=== PATIENT | male | born 1960 | race Two or more races ===

== ENCOUNTER 2018-12-03 22:18 | Inpatient (IN) | payer BC, MEDICAID, OTHER ==
[~2018-12-03] VITALS: Ht 165.1 cm; Wt 68.0 kg
[~2018-12-03 22:18] MED LIST: 0.9 % SODIUM CHLORIDE 10 ML VIAL ONE; HYDR-4383 PO; etomidate 2mg/ml inj. ONE; rocuronium 10mg/ml inj IV ONE
[2018-12-03] MEDS ORDERED: diphenhydrAMINE 50 mg/ml inj IV ONE (22:50)
[2018-12-03] MEDS ORDERED: epiNEPHrine 1 mg/ml inj IM ONE (22:50)
[2018-12-03] MEDS ORDERED: famotidine/PF 10 mg/ml inj IV ONE (22:50)
[2018-12-03] MEDS ORDERED: methylPREDNISolone sod succ 125mg/2ml vial IV ONE (22:50)
[2018-12-03] MEDS ORDERED: propofol 1000mg/100ml bottle 100 ML IV ONE (22:51)
--- NOTE | 2018-12-03 22:54 | NUR ---
125MG OF SOLUMEDROL GIVEN @ 2254 50MG OF BENADRYL GIVEN @ 2254 0.3MG OF EPI GIVEN @ 2255 50MG OF PROPOFOL GIVEN @ 2257 (1ST DOSE) 50MG OF PROPOFOL GIVEN @ 2258 (2ND DOSE) 50MG OF PROPOFOL GIVEN @ 2259 (3RD DOSE) 50MG OF PROPOFOL GIVEN @ 2300 (4TH DOSE) POSITIVE COLOR CHANGE @ 2305
--- NOTE | 2018-12-03 22:58 | NUR ---
PT TAKEN STRAIGHT BACK FROM TRIAGE TO BED 2, MD BAZAN AND MD DAWSON AT BEDSIDE. MD BAZAN EVALUATED PATIENT AND ORDERS EMERGENT INTUBATION DUE TO DECREASING AIRWAY PATENTCY.
--- NOTE | 2018-12-03 23:00 | NUR ---
RT AT BEDSIDE FOR EMERGENT INTUBATION, PATIENT VERBALLY GAVE CONSENT TO MD.
[2018-12-03] MEDS ORDERED: iohexol 300mg/ml 100ml inj. ONE (23:13)
--- NOTE | 2018-12-03 23:14 | NUR ---
RESPIRATORY ADVANCED TUBE TO 28 AT THE TEETH AFTER XRAY CONFIRMATION PER DR BAZAN.
[2018-12-03] MEDS ORDERED: midazolam 2 mg/2 ml injection ONE (23:31)
[2018-12-03 23:32] LABS: ALANINE AMINOTRANSFERASE 51 U/L (12-78); ALBUMIN 4.1 G/DL (3.4-5.0); ALBUMIN/GLOBULIN RATIO 0.8 (1.1-1.5); ALKALINE PHOSPHATASE 71 IU/L (46-116); ANION GAP 15 (8-16); ASPARTATE AMINO TRANSFERASE 68 U/L (10-37); BILIRUBIN,TOTAL 0.6 MG/DL (0.1-1.0); BLOOD UREA NITROGEN 8 MG/DL (7-18); BUN/CREATININE RATIO 7.7 (5.4-32.0); CALCIUM 9.5 MG/DL (8.5-10.1); CHLORIDE 97 MMOL/L (99-107); CREATININE 1.04 MG/DL (0.60-1.10); GLUCOSE 76 MG/DL (70-104); SODIUM 135 MMOL/L (135-145); TOTAL CARBON DIOXIDE 23.1 MMOL/L (24-32); TOTAL PROTEIN 9.2 G/DL (6.4-8.2); eGFR 73 ML/MIN
[2018-12-03 23:33] LABS: PARTIAL THROMBOPLASTIN TIME 29 SECONDS (22-32); PROTHROMBIN TIME 10.4 SECONDS (9.0-12.0)
[2018-12-03 23:35] LABS: BASOPHILS % (AUTO) 0.5 % (0-1); EOSINOPHILS # (AUTO) 0.1 X10'3 (0-0.9); EOSINOPHILS % (AUTO) 1.7 % (0-6); HEMOGLOBIN 14.8 g/dl (14.0-17.9); LYMPHOCYTES # (AUTO) 1.8 X10'3 (1.1-4.8); LYMPHOCYTES % (AUTO) 20.6 % (21-51); MEAN CORPUSCULAR HEMOGLOBIN 35.7 PG (27.0-31.0); MEAN PLATELET VOLUME 8.6 FL (7.4-10.4); MONOCYTES # (AUTO) 0.8 X10'3 (0-0.9); MONOCYTES % (AUTO) 9.7 % (2-12); NEUTROPHILS % (AUTO) 67.5 % (42-75); PLATELET COUNT 180 X10'3 (140-440); RED BLOOD COUNT 4.16 X10'6 (4.70-6.10); WHITE BLOOD COUNT 8.7 X10'3 (4.5-11.0)
[2018-12-03] MEDS ORDERED: fentaNYL/PF 50MCG/1 ML 2ML syringe IV ONE (23:35)
[2018-12-03] MEDS ORDERED: MIDAZolam 5mg/ml 2ml vial IV ONE (23:35)
[2018-12-04] VITALS (14 sets, daily range): BP systolic 127–175; BP diastolic 77–107
[2018-12-04 00:10] LABS: ABG HCO3 21.9 mmol/L (22.0-26.0); ABG OXYGEN SATURATION 97.5 % (95-98); ABG PCO2 (T) 34.6 mmHg (35.0-48.0); ABG PH (T) 7.419 (7.350-7.450); ALLEN'S TEST Positive; FCOHb 2.5 % (0.5-1.5); FMetHb 0.1 % (0.3-1.12); MINUTE VOLUME 8 L/min; PATIENT TEMPERATURE 36.8; PEEP 5 cm H2O; RESPIRATORY RATE 14 b/min; RESPIRATORY RATE (OBSERVED) 14 b/min; TOTAL HEMOGLOBIN 13.9 G/dl (14.0-18.0)
[2018-12-04] MEDS: propofol 1000mg/100ml bottle 100 ML IV PRN ×5 (00:38→18:42)
--- NOTE | 2018-12-04 02:02 | NUR ---
PATIENT EYES OPEN, MOVING, BOLUS AND INCREASE OF PROPOFOL
[2018-12-04] MEDS: normal saline 1000ml 1,000 ML IV SCH ×2 (02:44→13:31)
[2018-12-04] MEDS ORDERED: potassium Cl 40MEQ/NS 500ml 500 ML IV PRN ×2 (02:45)
[2018-12-04] MEDS ORDERED: ondansetron/PF 4mg/2ml inj IV PRN (02:45)
[2018-12-04] MEDS ORDERED: diphenhydrAMINE 50 mg/ml inj IV PRN (02:45)
[2018-12-04] MEDS ORDERED: acetaminophen 325mg tablet PO PRN ×2 (02:45)
[2018-12-04] MEDS ORDERED: magnesium hydroxide 30ml (MOM) UD suspension PO PRN (02:45)
[2018-12-04] MEDS ORDERED: ipratropium/albuterol 3ml nebule NEB PRN (02:45)
[2018-12-04] MEDS ORDERED: HYDR200T84 PO (03:07)
[2018-12-04] MEDS ORDERED: CLOP75TA15 PO (03:07)
[2018-12-04] MEDS ORDERED: METF850T PO (03:07)
[2018-12-04] MEDS ORDERED: GLIM1TAB PO (03:07)
[2018-12-04] MEDS ORDERED: LISI-645 PO (03:07)
[2018-12-04] MEDS ORDERED: METO1TAB25 PO (03:07)
[2018-12-04 07:58] LABS: INR 1.1 INR; PARTIAL THROMBOPLASTIN TIME 26 SECONDS (22-32); PROTHROMBIN TIME 10.7 SECONDS (9.0-12.0)
[2018-12-04 07:59] LABS: ALANINE AMINOTRANSFERASE 45 U/L (12-78); ALBUMIN 3.8 G/DL (3.4-5.0); ALBUMIN/GLOBULIN RATIO 0.8 (1.1-1.5); ALKALINE PHOSPHATASE 65 IU/L (46-116); ANION GAP 12 (8-16); ASPARTATE AMINO TRANSFERASE 50 U/L (10-37); BILIRUBIN,TOTAL 0.7 MG/DL (0.1-1.0); BLOOD UREA NITROGEN 10 MG/DL (7-18); BUN/CREATININE RATIO 9.2 (5.4-32.0); CALCIUM 9.4 MG/DL (8.5-10.1); CHLORIDE 99 MMOL/L (99-107); CREATININE 1.09 MG/DL (0.60-1.10); GLUCOSE 185 MG/DL (70-104); MAGNESIUM 1.7 MG/DL (1.5-2.4); PHOSPHORUS 1.7 MG/DL (2.3-4.5); POTASSIUM 4.7 MMOL/L (3.5-5.1); SODIUM 134 MMOL/L (135-145); TOTAL CARBON DIOXIDE 23.1 MMOL/L (24-32); TOTAL PROTEIN 8.8 G/DL (6.4-8.2); eGFR 69 ML/MIN
[2018-12-04] MEDS ORDERED: famotidine 10mg/ml inj IV SCH (08:00)
[2018-12-04] MEDS: docusate sodium 100mg/10ml UD cup PO SCH ×2 (08:00→20:16)
[2018-12-04] MEDS: K, MAG and/or Phos replacement - Verify level? MC SCH (08:00)
[2018-12-04] MEDS: methylPREDNISolone sod succ 125mg/2ml vial IV SCH ×3 (08:51→20:16)
[2018-12-04] MEDS: heparin, porcine 5000 units/ml vial SQ SCH ×2 (08:51→20:17)
[2018-12-04 09:55] LABS: BASOPHILS % (AUTO) 0.1 % (0-1); EOSINOPHILS % (AUTO) 0 % (0-6); HEMATOCRIT 43.3 % (42.0-52.0); HEMOGLOBIN 13.9 g/dl (14.0-17.9); LYMPHOCYTES # (AUTO) 0.5 X10'3 (1.1-4.8); LYMPHOCYTES % (AUTO) 9.7 % (21-51); MEAN CORPUSCULAR HEMOGLOBIN 35.2 PG (27.0-31.0); MEAN CORPUSCULAR HGB CONC 32.1 % (33.0-36.5); MEAN CORPUSCULAR VOLUME 109.7 FL (78-98); MEAN PLATELET VOLUME 9.1 FL (7.4-10.4); MONOCYTES % (AUTO) 0.6 % (2-12); NEUTROPHILS # (AUTO) 4.5 X10'3 (1.8-7.7); NEUTROPHILS % (AUTO) 89.6 % (42-75); PLATELET COUNT 162 X10'3 (140-440); RED BLOOD COUNT 3.95 X10'6 (4.70-6.10); RED CELL DISTRIBUTION WIDTH 12.9 % (11.5-14.5)
--- NOTE | 2018-12-04 10:00 | NUR ---
Received report from Matthew in ER. Patient arrived to unit. 2 nurse assessment completed with Claudine Tony Various scattered areas of depigmentation noted, 1 small area of skin abrasion to right worship noted, patient easily awakened, wrote to me he wanted water, explained why he was here and what the POC is. Patient nodded understanding. BP at 1100 175/107 Dr Connolly notified of BP , no new orders continue to monitor.
--- NOTE | 2018-12-04 11:58 | NUR ---
Patient turned and full skin assessment with direct observation completed by myself and Claudine Tony
--- NOTE | 2018-12-04 15:09 | NUR ---
Patient is intubated to protect airway d/t tongue swelling . Per MD note patient is awake, alert, though nonverbal and will be extubated when tongue swelling subsides. No plans for tube feeding at this time. Recommend: 1. If prolonged intubation and to receive tube feedings recommend vital AF at 70 ml/hr. 2. When extubated advance diet as medically indicated to heart healthy, carb controlled Addendum: 12/04/18 at [address] Amended: Links added.
[2018-12-04] MEDS ORDERED: dextrose 50%-water 50ml dispensing syringe IV PRN ×2 (16:55)
[2018-12-04] MEDS ORDERED: glucagon, human recombinant 1mg kit SUBCUT PRN (16:55)
[2018-12-04] MEDS ORDERED: MESSAGE TO PHARMACY PO ONE (16:55)
[2018-12-04] MEDS ORDERED: dextrose ORAL solution 15 GM/59 ML bottle PO PRN ×2 (16:55)
[2018-12-04 18:06] LABS: HEMOGLOBIN A1C 5.3 % (4.5-6.2)
--- NOTE | 2018-12-04 18:22 | NUR ---
Problems reprioritized. Patient report given, questions answered & plan of care reviewed with Claudine LÓPEZ.
--- NOTE | 2018-12-04 18:30 | NUR ---
RECEIVED IN BED , INTUBATED , ON MAX DOSE OF PROFOPOL , AWAKE , NOD TO QUESTION APPROPRIATELY , ASKING FOR A DRINK OF WATER , BP UP , NOD FOR PAIN QUESTION , ASSESSMENT STARTED
[2018-12-04] MEDS: famotidine/PF 10 mg/ml inj IV SCH (20:16)
[2018-12-04] MEDS: FENTANYL-0.9 % NACL/PF 100 ML IV PRN (20:18)
[2018-12-04] MEDS: insulin glargine (Lantus) pen - multi-dose SQ SCH (21:00)
[2018-12-05] VITALS (23 sets, daily range): BP systolic 114–166; BP diastolic 48–97
[2018-12-05] MEDS: diphenhydrAMINE 50 mg/ml inj IV SCH ×3 (00:04→15:23)
[2018-12-05] MEDS: methylPREDNISolone sod succ 125mg/2ml vial IV SCH ×4 (02:50→20:20)
[2018-12-05 03:36] LABS: ABG BASE EXCESS -3.3 mmol/L (-2.0-3.0); ABG HCO3 19.8 mmol/L (22.0-26.0); ABG OXYGEN SATURATION 98.3 % (95-98); ABG PCO2 (T) 28.6 mmHg (35.0-48.0); ABG PH (T) 7.452 (7.350-7.450); ABG PO2 (T) 117.1 mmHg (83-108); ALLEN'S TEST Positive; FCOHb 0.3 % (0.5-1.5); FMetHb 0.1 % (0.3-1.12); FO2Hb 97.9 % (94-100); PATIENT TEMPERATURE 35.7; PEEP 5 cm H2O; RESPIRATORY RATE 14 b/min; RESPIRATORY RATE (OBSERVED) 14 b/min; TOTAL HEMOGLOBIN 13.8 G/dl (14.0-18.0)
[2018-12-05 05:18] LABS: PARTIAL THROMBOPLASTIN TIME 26 SECONDS (22-32); PROTHROMBIN TIME 10.5 SECONDS (9.0-12.0)
[2018-12-05 05:23] LABS: ALANINE AMINOTRANSFERASE 35 U/L (12-78); ALBUMIN 3.3 G/DL (3.4-5.0); ALBUMIN/GLOBULIN RATIO 0.8 (1.1-1.5); ALKALINE PHOSPHATASE 52 IU/L (46-116); ANION GAP 12 (8-16); ASPARTATE AMINO TRANSFERASE 24 U/L (10-37); BILIRUBIN,TOTAL 0.5 MG/DL (0.1-1.0); BLOOD UREA NITROGEN 12 MG/DL (7-18); BUN/CREATININE RATIO 10.8 (5.4-32.0); CALCIUM 8.4 MG/DL (8.5-10.1); CHLORIDE 103 MMOL/L (99-107); CREATININE 1.11 MG/DL (0.60-1.10); GLUCOSE 167 MG/DL (70-104); MAGNESIUM 1.8 MG/DL (1.5-2.4); PHOSPHORUS 4.8 MG/DL (2.3-4.5); SODIUM 138 MMOL/L (135-145); TOTAL CARBON DIOXIDE 23.2 MMOL/L (24-32); TOTAL PROTEIN 7.6 G/DL (6.4-8.2); eGFR 68 ML/MIN
[2018-12-05 05:31] LABS: BASOPHILS % (AUTO) 0 % (0-1); EOSINOPHILS % (AUTO) 0 % (0-6); HEMATOCRIT 39.5 % (42.0-52.0); HEMOGLOBIN 13.1 g/dl (14.0-17.9); LYMPHOCYTES # (AUTO) 0.6 X10'3 (1.1-4.8); LYMPHOCYTES % (AUTO) 7.1 % (21-51); MEAN CORPUSCULAR HGB CONC 33.3 % (33.0-36.5); MEAN CORPUSCULAR VOLUME 108.3 FL (78-98); MEAN PLATELET VOLUME 9.4 FL (7.4-10.4); MONOCYTES # (AUTO) 0.2 X10'3 (0-0.9); MONOCYTES % (AUTO) 2.2 % (2-12); NEUTROPHILS # (AUTO) 7.6 X10'3 (1.8-7.7); NEUTROPHILS % (AUTO) 90.7 % (42-75); PLATELET COUNT 170 X10'3 (140-440); RED BLOOD COUNT 3.65 X10'6 (4.70-6.10); RED CELL DISTRIBUTION WIDTH 12.9 % (11.5-14.5); WHITE BLOOD COUNT 8.4 X10'3 (4.5-11.0)
[2018-12-05] MEDS: K, MAG and/or Phos replacement - Verify level? MC SCH (08:00)
[2018-12-05] MEDS: docusate sodium 100mg/10ml UD cup PO SCH ×2 (08:22→20:20)
[2018-12-05] MEDS: famotidine/PF 10 mg/ml inj IV SCH ×2 (08:22→20:19)
[2018-12-05] MEDS: heparin, porcine 5000 units/ml vial SQ SCH ×2 (08:25→20:20)
[2018-12-05] MEDS: propofol 1000mg/100ml bottle 100 ML IV PRN ×4 (08:34→23:21)
[2018-12-05] MEDS: normal saline 1000ml 1,000 ML IV SCH ×3 (08:44→19:31)
[2018-12-05] MEDS: FENTANYL-0.9 % NACL/PF 100 ML IV PRN (08:50)
[2018-12-05] MEDS: mineral oil/petrolatum ophthal oint EACHEYE SCH ×3 (08:50→20:19)
--- NOTE | 2018-12-05 11:10 | NUR ---
TF consult 12/05: Pt remains intubated. TF recommendations below. Will continue to follow. Previous note: Patient is intubated to protect airway d/t tongue swelling . Per MD note patient is awake, alert, though nonverbal and will be extubated when tongue swelling subsides. No plans for tube feeding at this time. Recommend: 1. Continuous TF of vital AF with goal rate of 70 ml/hr to provide: total volume of 1680 mL/d, 2016 kcal, 113 g protein, and 1284 mL water. 2. 200 mL water flush q 4 hrs 3. Prealbumin q / 4. Daily wt 5. When extubated advance diet as medically indicated to heart healthy, carb controlled Addendum: 12/05/18 at [address] Amended: Links added.
[2018-12-05] MEDS: insulin regular, human vial - multi-dose SQ SCH ×2 (14:05→20:26)
--- NOTE | 2018-12-05 18:28 | NUR ---
Problems reprioritized. Patient report given, questions answered & plan of care reviewed with Justin LÓPEZ.
[2018-12-05] MEDS: insulin glargine (Lantus) pen - multi-dose SQ SCH (20:25)
[2018-12-06] VITALS (30 sets, daily range): BP systolic 109–267; BP diastolic 58–205
[2018-12-06] MEDS: FENTANYL-0.9 % NACL/PF 100 ML IV PRN (00:38)
[2018-12-06] MEDS: diphenhydrAMINE 50 mg/ml inj IV SCH ×4 (00:38→23:35)
[2018-12-06] MEDS: methylPREDNISolone sod succ 125mg/2ml vial IV SCH ×4 (02:45→19:46)
[2018-12-06] MEDS: mineral oil/petrolatum ophthal oint EACHEYE SCH ×4 (02:46→19:00)
[2018-12-06] MEDS: insulin regular, human vial - multi-dose SQ SCH ×2 (02:51→08:43)
[2018-12-06 04:16] LABS: ABG BASE EXCESS -4.3 mmol/L (-2.0-3.0); ABG OXYGEN SATURATION 96.5 % (95-98); ABG PCO2 (T) 28.9 mmHg (35.0-48.0); ABG PH (T) 7.432 (7.350-7.450); ABG PO2 (T) 84.6 mmHg (83-108); ALLEN'S TEST Positive; FCOHb 0.3 % (0.5-1.5); FMetHb 0.1 % (0.3-1.12); FO2Hb 96.1 % (94-100); MINUTE VOLUME 7 L/min; PATIENT TEMPERATURE 36.3; PEEP 5 cm H2O; RESPIRATORY RATE 14 b/min; RESPIRATORY RATE (OBSERVED) 14 b/min; TOTAL HEMOGLOBIN 12.9 G/dl (14.0-18.0)
[2018-12-06] MEDS: normal saline 1000ml 1,000 ML IV SCH ×2 (04:59→14:03)
[2018-12-06] MEDS: propofol 1000mg/100ml bottle 100 ML IV PRN (05:00)
--- NOTE | 2018-12-06 06:32 | NUR ---
Problems reprioritized. Patient report given, questions answered & plan of care reviewed with Juliana LÓPEZ.
[2018-12-06 06:53] LABS: ALANINE AMINOTRANSFERASE 28 U/L (12-78); ALBUMIN 2.9 G/DL (3.4-5.0); ALBUMIN/GLOBULIN RATIO 0.7 (1.1-1.5); ALKALINE PHOSPHATASE 46 IU/L (46-116); ANION GAP 15 (8-16); ASPARTATE AMINO TRANSFERASE 21 U/L (10-37); BILIRUBIN,TOTAL 0.4 MG/DL (0.1-1.0); BLOOD UREA NITROGEN 16 MG/DL (7-18); BUN/CREATININE RATIO 16.7 (5.4-32.0); CALCIUM 8.2 MG/DL (8.5-10.1); CHLORIDE 107 MMOL/L (99-107); CREATININE 0.96 MG/DL (0.60-1.10); GLUCOSE 167 MG/DL (70-104); PHOSPHORUS 3.5 MG/DL (2.3-4.5); POTASSIUM 3.7 MMOL/L (3.5-5.1); SODIUM 141 MMOL/L (135-145); TOTAL CARBON DIOXIDE 19.2 MMOL/L (24-32); TOTAL PROTEIN 6.8 G/DL (6.4-8.2); eGFR 80 ML/MIN
[2018-12-06 07:00] LABS: BASOPHILS % (AUTO) 0.1 % (0-1); EOSINOPHILS % (AUTO) 0 % (0-6); HEMATOCRIT 35.8 % (42.0-52.0); LYMPHOCYTES # (AUTO) 0.6 X10'3 (1.1-4.8); LYMPHOCYTES % (AUTO) 6.8 % (21-51); MEAN CORPUSCULAR HEMOGLOBIN 36.8 PG (27.0-31.0); MEAN CORPUSCULAR HGB CONC 33.6 % (33.0-36.5); MEAN CORPUSCULAR VOLUME 109.7 FL (78-98); MEAN PLATELET VOLUME 9.8 FL (7.4-10.4); MONOCYTES # (AUTO) 0.3 X10'3 (0-0.9); NEUTROPHILS # (AUTO) 7.8 X10'3 (1.8-7.7); NEUTROPHILS % (AUTO) 89.1 % (42-75); PLATELET COUNT 141 X10'3 (140-440); RED BLOOD COUNT 3.26 X10'6 (4.70-6.10); WHITE BLOOD COUNT 8.7 X10'3 (4.5-11.0)
[2018-12-06 07:10] LABS: INR 1.1 INR; PARTIAL THROMBOPLASTIN TIME 26 SECONDS (22-32); PROTHROMBIN TIME 10.7 SECONDS (9.0-12.0)
[2018-12-06] MEDS: K, MAG and/or Phos replacement - Verify level? MC SCH (08:00)
[2018-12-06] MEDS: heparin, porcine 5000 units/ml vial SQ SCH ×2 (08:31→19:45)
[2018-12-06] MEDS: famotidine/PF 10 mg/ml inj IV SCH ×2 (08:31→19:45)
[2018-12-06] MEDS: docusate sodium 100mg/10ml UD cup PO SCH ×2 (08:32→19:45)
[2018-12-06] MEDS: labetalol 20mg/4ml (5mg/ml) syringe IV PRN ×2 (09:44→16:55)
--- NOTE | 2018-12-06 09:49 | NUR ---
Pt. awake and communicating with communication tools. Awaiting RT to obtain weaning parameters on pt.
--- NOTE | 2018-12-06 09:50 | NUR ---
Medicated with PRN labetolol for increased BP of 179/105.
--- NOTE | 2018-12-06 10:32 | NUR ---
Pt. just passed weaning parameters. Dr. Srinivasan notified in person as she came and saw pt. as RT was finishing. Awaiting orders to extubate.
--- NOTE | 2018-12-06 11:35 | NUR ---
Awaiting RT to extubate pt. Family at bedside.
--- NOTE | 2018-12-06 11:44 | NUR ---
Pt. extubated at 1140. Sp02 98% on 2L nc. No stridor noted. Call light in reach.
[2018-12-06] MEDS ORDERED: labetalol 20mg/4ml (5mg/ml) syringe IV ONE (12:00)
--- NOTE | 2018-12-06 12:40 | NUR ---
Dr. Srinivasan at bedside speaking with pt. BP remains high (208/125). Coreg ordered.
[2018-12-06] MEDS: carvedilol 6.25mg tablet PO SCH ×2 (12:46→19:02)
--- NOTE | 2018-12-06 18:25 | NUR ---
Report given to Keya palomino RN. Addendum: 12/06/18 at 1826 by Juliana Bassett RN Amended: Links added.
--- NOTE | 2018-12-06 18:30 | NUR ---
Patient in room ICU 2045. I have received report from Juliana LÓPEZ and had the opportunity to ask questions and assume patient care.
[2018-12-06] MEDS ORDERED: hydrALAZINE 20mg/ml inj. IV PRN (19:25)
[2018-12-06] MEDS ORDERED: diphenhydrAMINE 50 mg/ml inj IV PRN (19:25)
[2018-12-06] MEDS ORDERED: amLODIPine 5mg tablet PO ONE (19:25)
--- NOTE | 2018-12-06 20:00 | NUR ---
Notification: Called November Zamorano RE: I gave ordered Coreg early. PRN given at 1655. Elevated BP not responding to ordered TX. New orders received will administer and monitor closely.
[2018-12-06] MEDS: insulin Lispro (HumaLOG) vial - multi-dose SQ SCH (20:03)
[2018-12-06] MEDS: insulin glargine (Lantus) pen - multi-dose SQ SCH (21:15)
--- NOTE | 2018-12-06 21:35 | NUR ---
MD Notification: November Zamorano at bedside RE: Pt C/O difficult breathing SBP and HR increasing and pt O2 sat decreasing. Lungs sound crackles. Nonrebreather mask applied. New orders received. Nitro sublingual, nitro gtt, Lasix IV, increased solumedrol IV, labs, and chest x-ray. Will continue to monitor.
--- NOTE | 2018-12-06 21:35 | NUR ---
SBP goal greater than 100 and less than 140. Will continue to monitor.
[2018-12-06] MEDS ORDERED: nitroGLYCERIN-Tridil 50MG/D5W 250 ML IV ONE (21:44)
[2018-12-06] MEDS ORDERED: nitroGLYCERIN 0.4mg SUBLingual tab SL ONE (21:44)
[2018-12-06] MEDS ORDERED: furosemide 40mg/4ml inj IV ONE (21:45)
[2018-12-06] MEDS ORDERED: nitroGLYCERIN 0.4mg SUBLingual tab SL PRN (21:45)
[2018-12-06] MEDS ORDERED: morphine 4 MG/ML inj SYRINge ONE (21:54)
[2018-12-06] MEDS ORDERED: morphine 4 MG/ML inj SYRINge IV ONE (21:55)
[2018-12-06] MEDS ORDERED: methylPREDNISolone sod succ 125mg/2ml vial IV ONE (22:00)
[2018-12-06] MEDS ORDERED: CefTRIAXone 2gm/D5W 50ml 50 ML IV ONE (22:00)
--- NOTE | 2018-12-06 22:00 | NUR ---
Notification: Called November Zamorano RE: critical troponin 1.35. New orders received start a new IV and heparin gtt. Awaiting results of throat Xray before starting gtt. Will continue to monitor.
[2018-12-06 22:11] LABS: BASOPHILS # (AUTO) 0.1 X10'3 (0-0.2); BASOPHILS % (AUTO) 0.5 % (0-1); EOSINOPHILS % (AUTO) 0.1 % (0-6); HEMATOCRIT 46.8 % (42.0-52.0); LYMPHOCYTES # (AUTO) 1.1 X10'3 (1.1-4.8); LYMPHOCYTES % (AUTO) 5.8 % (21-51); MEAN CORPUSCULAR HEMOGLOBIN 35.3 PG (27.0-31.0); MEAN CORPUSCULAR HGB CONC 32.1 % (33.0-36.5); MEAN CORPUSCULAR VOLUME 109.9 FL (78-98); MEAN PLATELET VOLUME 9.2 FL (7.4-10.4); MONOCYTES # (AUTO) 0.7 X10'3 (0-0.9); MONOCYTES % (AUTO) 3.6 % (2-12); NEUTROPHILS # (AUTO) 17.1 X10'3 (1.8-7.7); PLATELET COUNT 196 X10'3 (140-440); RED BLOOD COUNT 4.25 X10'6 (4.70-6.10); RED CELL DISTRIBUTION WIDTH 13.2 % (11.5-14.5)
[2018-12-06 22:28] LABS: ALANINE AMINOTRANSFERASE 35 U/L (12-78); ALBUMIN 3.1 G/DL (3.4-5.0); ALBUMIN/GLOBULIN RATIO 0.6 (1.1-1.5); ALKALINE PHOSPHATASE 70 IU/L (46-116); ANION GAP 14 (8-16); ASPARTATE AMINO TRANSFERASE 48 U/L (10-37); BILIRUBIN,TOTAL 0.8 MG/DL (0.1-1.0); BLOOD UREA NITROGEN 21 MG/DL (7-18); CALCIUM 8.4 MG/DL (8.5-10.1); CHLORIDE 109 MMOL/L (99-107); GLUCOSE 180 MG/DL (70-104); POTASSIUM 4.3 MMOL/L (3.5-5.1); SODIUM 143 MMOL/L (135-145); TOTAL CARBON DIOXIDE 20.1 MMOL/L (24-32); eGFR 76 ML/MIN
[2018-12-06 22:36] LABS: TROPONIN I 1.35 NG/ML (0.0-0.05)
[2018-12-06] MEDS ORDERED: heparin 10,000 units/1 ML INJ IV PRN (22:40)
[2018-12-06] MEDS ORDERED: aspirin 81mg tab.chew PO ONE (22:40)
[2018-12-06] MEDS ORDERED: heparin 10,000 units/1 ML INJ IV ONE (22:40)
[2018-12-06] MEDS: nitroGLYCERIN-Tridil 50MG/D5W 250 ML IV PRN (22:59)
[2018-12-06] MEDS: heparin 25,000 UNIT/250ml bag 250 ML IV SCH (23:44)
[2018-12-07] VITALS (31 sets, daily range): BP systolic 119–165; BP diastolic 78–108
[2018-12-07] MEDS: normal saline 1000ml 1,000 ML IV SCH (00:44)
[2018-12-07] MEDS: mineral oil/petrolatum ophthal oint EACHEYE SCH (02:00)
[2018-12-07] MEDS: methylPREDNISolone sod succ 125mg/2ml vial IV SCH ×4 (02:38→20:32)
--- NOTE | 2018-12-07 02:47 | NUR ---
notified Pt had a 6 beat run of VTach. Will assess this labs and continue to monitor.
[2018-12-07 03:58] LABS: BASOPHILS # (AUTO) 0.1 X10'3 (0-0.2); BASOPHILS % (AUTO) 0.4 % (0-1); EOSINOPHILS % (AUTO) 0 % (0-6); HEMATOCRIT 43.6 % (42.0-52.0); LYMPHOCYTES # (AUTO) 0.8 X10'3 (1.1-4.8); LYMPHOCYTES % (AUTO) 6.1 % (21-51); MEAN CORPUSCULAR HEMOGLOBIN 35.1 PG (27.0-31.0); MEAN CORPUSCULAR HGB CONC 32.1 % (33.0-36.5); MEAN CORPUSCULAR VOLUME 109.4 FL (78-98); MEAN PLATELET VOLUME 9.5 FL (7.4-10.4); MONOCYTES # (AUTO) 0.5 X10'3 (0-0.9); MONOCYTES % (AUTO) 4.1 % (2-12); NEUTROPHILS # (AUTO) 11.7 X10'3 (1.8-7.7); NEUTROPHILS % (AUTO) 89.4 % (42-75); PLATELET COUNT 168 X10'3 (140-440); RED BLOOD COUNT 3.99 X10'6 (4.70-6.10); WHITE BLOOD COUNT 13.1 X10'3 (4.5-11.0)
[2018-12-07 04:33] LABS: TROPONIN I 4.07 NG/ML (0.0-0.05)
[2018-12-07 04:47] LABS: ALANINE AMINOTRANSFERASE 32 U/L (12-78); ALBUMIN 3.1 G/DL (3.4-5.0); ALBUMIN/GLOBULIN RATIO 0.7 (1.1-1.5); ALKALINE PHOSPHATASE 66 IU/L (46-116); ANION GAP 15 (8-16); ASPARTATE AMINO TRANSFERASE 42 U/L (10-37); BILIRUBIN,TOTAL 0.5 MG/DL (0.1-1.0); BLOOD UREA NITROGEN 23 MG/DL (7-18); BUN/CREATININE RATIO 20.5 (5.4-32.0); CALCIUM 8.5 MG/DL (8.5-10.1); CHLORIDE 106 MMOL/L (99-107); CREATININE 1.12 MG/DL (0.60-1.10); GLUCOSE 137 MG/DL (70-104); MAGNESIUM 2.1 MG/DL (1.5-2.4); PHOSPHORUS 3.7 MG/DL (2.3-4.5); PREALBUMIN 23.5 MG/DL (19-36); SODIUM 143 MMOL/L (135-145); TOTAL CARBON DIOXIDE 21.7 MMOL/L (24-32); TOTAL PROTEIN 7.8 G/DL (6.4-8.2); eGFR 67 ML/MIN
--- NOTE | 2018-12-07 06:19 | NUR ---
Problems reprioritized. Patient report given, questions answered & plan of care reviewed with Juliana LÓPEZ.
--- NOTE | 2018-12-07 06:29 | NUR ---
Patient in room ICU 2045. I have received report from Keya LÓPEZ and had the opportunity to ask questions and assume patient care. Addendum: 12/07/18 at 0629 by Juliana Bassett RN Amended: Links added.
[2018-12-07 07:03] LABS: INR 1.1 INR; PROTHROMBIN TIME 11.1 SECONDS (9.0-12.0)
--- NOTE | 2018-12-07 07:26 | NUR ---
Karol Zamorano here. Stated she talked with Sumeet Elias (cardiology for Dr. Vasques) and she will see pt. later for elevated troponin. Nitro gtt increased to 100mcg for systolic BP >150.
[2018-12-07] MEDS: CefTRIAXone 2gm/D5W 50ml 50 ML IV SCH (07:57)
[2018-12-07] MEDS: famotidine/PF 10 mg/ml inj IV SCH ×2 (07:59→20:29)
[2018-12-07] MEDS: diphenhydrAMINE 50 mg/ml inj IV SCH ×2 (07:59→16:25)
[2018-12-07] MEDS ORDERED: non-formulary drug (Metoprolol/Hydrochlorothiazide 50/25 MG* (Lopressor Hct 50/25 MG*) 1 T PO SCH (08:00)
[2018-12-07] MEDS ORDERED: metoprolol tartrate 50mg tablet PO SCH (08:00)
[2018-12-07] MEDS: K, MAG and/or Phos replacement - Verify level? MC SCH (08:00)
[2018-12-07] MEDS ORDERED: furosemide 40mg tablet PO SCH (08:00)
[2018-12-07] MEDS ORDERED: HYDROchlorothiazide 25mg tablet PO SCH (08:00)
--- NOTE | 2018-12-07 08:19 | NUR ---
ECHO being done now. Ai Elias here. Will come back when ECHO done.
[2018-12-07] MEDS ORDERED: aspirin 325mg tablet PO SCH (08:30)
[2018-12-07] MEDS: insulin Lispro (HumaLOG) vial - multi-dose SQ SCH ×3 (08:42→18:52)
[2018-12-07] MEDS: clopidogrel 75mg tablet PO SCH (08:43)
[2018-12-07] MEDS: docusate sodium 100mg/10ml UD cup PO SCH ×2 (08:44→20:33)
[2018-12-07] MEDS: carvedilol 6.25mg tablet PO SCH (08:44)
[2018-12-07] MEDS: heparin 25,000 UNIT/250ml bag 250 ML IV SCH ×2 (09:07→11:33)
[2018-12-07] MEDS: aspirin 81mg tablet.DR PO SCH (09:40)
[2018-12-07] MEDS: nitroGLYCERIN-Tridil 50MG/D5W 250 ML IV PRN ×3 (09:48→22:46)
[2018-12-07 10:05] LABS: CHOL/HDL RATIO 4.4 (0.00-4.99); CHOLESTEROL 268 MG/DL (0-200); HDL CHOLESTEROL 61 MG/DL (35-60); LDL CHOLESTEROL 194 MG/DL (50-100); TRIGLYCERIDES 82 MG/DL (20-135)
--- NOTE | 2018-12-07 10:53 | NUR ---
Pt. taken off bipap and placed on 2L nc per pt's insistence. SP02 99% on nc.
--- NOTE | 2018-12-07 11:26 | NUR ---
Case Management talking with pt. now. Dr. Connolly came to pt's room. Noted pt. in chair off bipap.
[2018-12-07] MEDS: atorvastatin 20mg tablet PO SCH (13:22)
[2018-12-07] MEDS: furosemide 40mg tablet PO SCH ×2 (13:22→20:33)
--- NOTE | 2018-12-07 14:50 | NUR ---
Pt. sitting in chair, watching TV. SP02 99% on 2L.
--- NOTE | 2018-12-07 18:17 | NUR ---
Problems reprioritized. Patient report given, questions answered & plan of care reviewed with Talon LÓPEZ. Addendum: 12/07/18 at 1817 by Juliana Bassett RN Amended: Links added.
--- NOTE | 2018-12-07 18:20 | NUR ---
Patient in room ICU 2045. I have received report from RENE Andrews and had the opportunity to ask questions and assume patient care.
[2018-12-07] MEDS: carVEDilol 12.5mg tablet PO SCH (20:33)
[2018-12-07] MEDS: lactobacillus rhamnosus 10,000 MMU CELLS/CAPSULE PO SCH (20:33)
[2018-12-07] MEDS: insulin glargine (Lantus) pen - multi-dose SQ SCH (20:58)
--- NOTE | 2018-12-07 23:41 | NUR ---
Problems reprioritized. Patient report given, questions answered & plan of care reviewed with Devika/RENE Edmond.
--- NOTE | 2018-12-07 23:41 | NUR ---
Patient in room ICU 2045. I have received report from RENE Hanley and had the opportunity to ask questions and assume patient care with Shannon Richardson RN. Patient is awake and alert in bed. Very pleasant, in no distress at this time. Lung sounds clear and equal bilaterally. Patient with Heparin, and Nitroglycerin infusing. Normal saline running at 20ml/hr through PIV's to right and left forearm. Patient uses urinal and has great urine output. Patient expresses that he wants to get some rest. Made patient aware of the medications that he will have due in the next few hours.
[2018-12-08] VITALS (10 sets, daily range): BP systolic 121–144; BP diastolic 73–86
[2018-12-08] MEDS: diphenhydrAMINE 50 mg/ml inj IV SCH ×2 (00:42→07:40)
[2018-12-08] MEDS: methylPREDNISolone sod succ 125mg/2ml vial IV SCH ×2 (02:35→07:40)
--- NOTE | 2018-12-08 04:00 | NUR ---
Patient with intermittent cough, no productive. patient reassessed, lung sounds are clear and equal bilaterally. Patient denies any distress at this time, will continue to monitor.
[2018-12-08] MEDS: nitroGLYCERIN-Tridil 50MG/D5W 250 ML IV PRN (04:18)
[2018-12-08 05:14] LABS: BASOPHILS % (AUTO) 0 % (0-1); EOSINOPHILS % (AUTO) 0 % (0-6); HEMOGLOBIN 12.7 g/dl (14.0-17.9); LYMPHOCYTES # (AUTO) 0.9 X10'3 (1.1-4.8); LYMPHOCYTES % (AUTO) 11.1 % (21-51); MEAN CORPUSCULAR HEMOGLOBIN 36.3 PG (27.0-31.0); MEAN CORPUSCULAR HGB CONC 33.5 % (33.0-36.5); MEAN CORPUSCULAR VOLUME 108.2 FL (78-98); MEAN PLATELET VOLUME 9.3 FL (7.4-10.4); MONOCYTES # (AUTO) 0.3 X10'3 (0-0.9); MONOCYTES % (AUTO) 3.1 % (2-12); NEUTROPHILS % (AUTO) 85.8 % (42-75); PLATELET COUNT 151 X10'3 (140-440); RED BLOOD COUNT 3.51 X10'6 (4.70-6.10); RED CELL DISTRIBUTION WIDTH 12.8 % (11.5-14.5); WHITE BLOOD COUNT 8.2 X10'3 (4.5-11.0)
[2018-12-08 05:27] LABS: INR 1.1 INR; PROTHROMBIN TIME 11.2 SECONDS (9.0-12.0)
[2018-12-08 05:46] LABS: ALANINE AMINOTRANSFERASE 34 U/L (12-78); ALBUMIN/GLOBULIN RATIO 0.7 (1.1-1.5); ALKALINE PHOSPHATASE 51 IU/L (46-116); ANION GAP 15 (8-16); ASPARTATE AMINO TRANSFERASE 32 U/L (10-37); BILIRUBIN,TOTAL 0.6 MG/DL (0.1-1.0); BLOOD UREA NITROGEN 32 MG/DL (7-18); BUN/CREATININE RATIO 26.2 (5.4-32.0); CHLORIDE 99 MMOL/L (99-107); CREATININE 1.22 MG/DL (0.60-1.10); GLUCOSE 170 MG/DL (70-104); MAGNESIUM 1.8 MG/DL (1.5-2.4); PHOSPHORUS 4.4 MG/DL (2.3-4.5); SODIUM 138 MMOL/L (135-145); TOTAL CARBON DIOXIDE 24.5 MMOL/L (24-32); TOTAL PROTEIN 7.3 G/DL (6.4-8.2); eGFR 61 ML/MIN
--- NOTE | 2018-12-08 06:19 | NUR ---
report given to rec rn plan of care reviewed
[2018-12-08] MEDS: docusate sodium 100mg/10ml UD cup PO SCH (07:39)
[2018-12-08] MEDS: atorvastatin 20mg tablet PO SCH (07:39)
[2018-12-08] MEDS: furosemide 40mg tablet PO SCH (07:39)
[2018-12-08] MEDS: clopidogrel 75mg tablet PO SCH (07:39)
[2018-12-08] MEDS: lactobacillus rhamnosus 10,000 MMU CELLS/CAPSULE PO SCH (07:40)
[2018-12-08] MEDS: aspirin 81mg tablet.DR PO SCH (07:40)
[2018-12-08] MEDS: CefTRIAXone 2gm/D5W 50ml 50 ML IV SCH (07:40)
[2018-12-08] MEDS: famotidine/PF 10 mg/ml inj IV SCH (07:40)
[2018-12-08] MEDS: carVEDilol 12.5mg tablet PO SCH (07:40)
[2018-12-08] MEDS: K, MAG and/or Phos replacement - Verify level? MC SCH (07:47)
[2018-12-08] MEDS: insulin Lispro (HumaLOG) vial - multi-dose SQ SCH (08:34)
--- NOTE | 2018-12-08 08:43 | NUR ---
Sumeet Elias here for cardiology. Stated pt. can dc Heparin and Nitro gtt if ok with Dr. Connolly.
--- NOTE | 2018-12-08 09:36 | NUR ---
Dr. Connolly placing transfer orders in now for pt. to go to PCU with Tele. Charge nurse notified. Nitro and Heparin gtts dc'd.
--- NOTE | 2018-12-08 09:55 | NUR ---
SS met w/[facility] staff and was informed that pt was not cooperative in applying for [employer]. SS will meet w/pt to inform him about the option of hiring a private paid caregiver as w/o Med[employer] pt will not be able to access [facility] services.
--- NOTE | 2018-12-08 11:11 | NUR ---
Tele #[phone] placed on pt. since new monitors are being placed in ICU and there will be a lapse in monitoring pt. Pt. awaiting a room on PCU.
[2018-12-08] MEDS ORDERED: FAMO-128 PO (11:22)
[2018-12-08] MEDS ORDERED: CARV-50 PO (11:22)
[2018-12-08] MEDS ORDERED: ATOR20TA66 PO (11:22)
[2018-12-08] MEDS ORDERED: PRED10TA23 PO (11:22)
[2018-12-08] MEDS ORDERED: ASPI-1071 PO (11:22)
--- NOTE | 2018-12-08 11:23 | NUR ---
Pt. was unaware the Dr. Connolly was the MD when he came in to speak with pt. Dr. Connolly had plans to send pt. upstairs. Pt. wishing to go home. RN had pt. ambulate out to where Dr. Connolly was and tell him that he wanted to go home instead of being transferred upstairs. Awaiting orders.
--- NOTE | 2018-12-08 12:19 | NUR ---
Discharge instructions given to pt. Home meds obtained from pharmacy. Pt. to F/U with Dr. Vasques this week. Pt. dc'd in stable condition.
--- NOTE | 2018-12-08 13:46 | NUR ---
pt d/c'd home and have declined all offers of linkages to support services and [employer]. SS referral closed.
[2018-12-08] MEDS ORDERED: methylPREDNISolone sod succ 125mg/2ml vial IV SCH (14:00)
[2018-12-09] MEDS ORDERED: atorvastatin 20mg tablet PO SCH (08:00)
== END 2018-12-08 12:28 | disposition home or self-care (01) | DRG 915 ==
LOC: ER 22:19 → ED HOLD 12-04 02:44 → ICU 2S 12-04 10:05
PROVIDERS: ADMIT Internal Medicine Critical Care Medicine; ATTEND Internal Medicine Critical Care Medicine
PROC: 5A1945Z Respiratory Ventilation, 24-96 Consecutive Hours (ICD-10-PCS; principal; 2018-12-03)
PROC: 0BH17EZ Insertion of Endotracheal Airway into Trachea, Via Natural or Artificial Opening (ICD-10-PCS; 2018-12-03)
PROC: BW2F1ZZ Computerized Tomography (CT Scan) of Neck using Low Osmolar Contrast (ICD-10-PCS; 2018-12-03)
PROC: 5A09357 Assistance with Respiratory Ventilation, Less than 24 Consecutive Hours, Continuous Positive Airway Pressure (ICD-10-PCS; 2018-12-06)
DX: T78.3XXA Angioneurotic edema, initial encounter (principal); J96.01 Acute respiratory failure with hypoxia; E11.9 Type 2 diabetes mellitus without complications; E78.5 Hyperlipidemia, unspecified; F17.210 Nicotine dependence, cigarettes, uncomplicated; I11.0 Hypertensive heart disease with heart failure; I50.9 Heart failure, unspecified; I25.10 Atherosclerotic heart disease of native coronary artery without angina pectoris; T46.4X5A Adverse effect of angiotensin-converting-enzyme inhibitors, initial encounter; Z79.82 Long term (current) use of aspirin; Z79.84 Long term (current) use of oral hypoglycemic drugs; Z82.49 Family history of ischemic heart disease and other diseases of the circulatory system; Z83.3 Family history of diabetes mellitus; Z95.5 Presence of coronary angioplasty implant and graft; Z79.899 Other long term (current) drug therapy; Z71.6 Tobacco abuse counseling
CPT/HCPCS: 31500; 36415; 36600; 70360; 70491; 71045; 80053; 80061; 82803; 82948; 83036; 83735; 83880; 84100; 84134; 84484; 85018; 85025; 85610; 85730; 86885; 86900; 86901; 87070; 87077; 87185; 93005; 93306; 94002; 94003; 94660; 94760; 96372; 96374; 96375; 97162; 99291; G0378; J0171; J0360; J0696; J1200; J1644; J1815; J1940; J2250; J2270; J2704; J2930; J3010; J3480; J3490; Q9967

== ENCOUNTER 2021-09-18 20:17 | Inpatient (IN) | payer BC, MEDICAID, SELFPAY ==
[~2021-09-18] VITALS: Ht 172.7 cm; Wt 72.7 kg
[~2021-09-18 20:17] MED LIST changes: -0.9 % SODIUM CHLORIDE 10 ML VIAL ONE; +ASPI-1071 PO; +ATOR20TA66 PO; +CARV-50 PO; +CLOP75TA15 PO; +FAMO-128 PO; +GLIM1TAB PO; -HYDR-4383 PO; +HYDR200T84 PO; +METF850T PO; -etomidate 2mg/ml inj. ONE; -rocuronium 10mg/ml inj IV ONE
[2021-09-18 20:56] LABS: BASOPHILS % (AUTO) 0.6 % (0-1); EOSINOPHILS # (AUTO) 0.2 X10'3 (0-0.9); EOSINOPHILS % (AUTO) 3.2 % (0-6); HEMATOCRIT 39.2 % (42.0-52.0); HEMOGLOBIN 13.4 g/dl (14.0-17.9); LYMPHOCYTES # (AUTO) 1.3 X10'3 (1.1-4.8); LYMPHOCYTES % (AUTO) 24.6 % (21-51); MEAN CORPUSCULAR VOLUME 105.8 FL (78-98); MEAN PLATELET VOLUME 8.6 FL (7.4-10.4); MONOCYTES # (AUTO) 0.6 X10'3 (0-0.9); MONOCYTES % (AUTO) 11.1 % (2-12); NEUTROPHILS # (AUTO) 3.3 X10'3 (1.8-7.7); NEUTROPHILS % (AUTO) 60.5 % (42-75); PLATELET COUNT 134 X10'3 (140-440); RED BLOOD COUNT 3.71 X10'6 (4.70-6.10); RED CELL DISTRIBUTION WIDTH 13.5 % (11.5-14.5); WHITE BLOOD COUNT 5.4 X10'3 (4.5-11.0)
[2021-09-18 21:04] LABS: PARTIAL THROMBOPLASTIN TIME 29 SECONDS (22-32)
[2021-09-18 21:07] LABS: ALANINE AMINOTRANSFERASE 51 U/L (12-78); ALBUMIN 3.7 G/DL (3.4-5.0); ALBUMIN/GLOBULIN RATIO 0.9 (1.1-1.5); ALKALINE PHOSPHATASE 52 IU/L (46-116); ANION GAP 11 (8-16); ASPARTATE AMINO TRANSFERASE 41 U/L (10-37); BILIRUBIN,TOTAL 0.8 MG/DL (0.1-1.0); BLOOD UREA NITROGEN 9 MG/DL (7-18); BUN/CREATININE RATIO 7.8 (5.4-32.0); CHLORIDE 98 MMOL/L (99-107); CREATININE 1.15 MG/DL (0.60-1.10); GLUCOSE 111 MG/DL (70-104); SODIUM 133 MMOL/L (135-145); TOTAL CARBON DIOXIDE 24.5 MMOL/L (24-32); eGFR 64 ML/MIN
[2021-09-18 21:11] LABS: TROPONIN I 0.11 NG/ML (0.0-0.05)
[2021-09-18] MEDS ORDERED: labetalol 20mg/4ml (5mg/ml) syringe IV ONE (22:20)
[2021-09-18] MEDS ORDERED: MESSAGE TO PHARMACY PO ONE (23:35)
[2021-09-18] MEDS ORDERED: glucagon, human recombinant 1mg kit SUBCUT PRN (23:35)
[2021-09-18] MEDS ORDERED: insulin Lispro (HumaLOG) vial - multi-dose SQ SCH (23:35)
[2021-09-18] MEDS ORDERED: dextrose 50%-water 50ml dispensing syringe IV PRN ×2 (23:35)
[2021-09-18] MEDS ORDERED: dextrose ORAL solution 15 GM/59 ML bottle PO PRN ×2 (23:35)
[2021-09-18 23:50] LABS: HEMOGLOBIN A1C 6.3 % (4.5-6.2)
[2021-09-19] MEDS ORDERED: mag hydrox/Alum hydrox/simeth 30ml oral suspension PO PRN ×2 (00:35→01:00)
[2021-09-19] MEDS ORDERED: bisacodyl 10mg suppository rectal RC PRN (00:35)
[2021-09-19] MEDS ORDERED: acetaminophen 325mg tablet PO PRN ×2 (00:35)
[2021-09-19] MEDS ORDERED: ondansetron 4mg rapidly disintigrating tab PO PRN (00:35)
[2021-09-19] MEDS ORDERED: ondansetron/PF 4mg/2ml inj IV PRN (00:35)
[2021-09-19] MEDS ORDERED: normal saline 1000ml 1,000 ML IV SCH (00:35)
[2021-09-19] MEDS ORDERED: HYDROmorphone inj. 0.5 MG/0.5 ML DISP.SYRIN IV PRN (00:35)
[2021-09-19] MEDS ORDERED: HYDROcodone/acetaminophen 5mg/325mg tablet PO PRN (00:35)
[2021-09-19] MEDS ORDERED: magnesium hydroxide 30ml (MOM) UD suspension PO PRN (00:35)
[2021-09-19] MEDS ORDERED: morphine 2 MG/ML inj. syringe IV PRN ×2 (00:35)
[2021-09-19] MEDS ORDERED: diphenhydrAMINE 25mg capsule PO PRN (00:35)
[2021-09-19] MEDS ORDERED: HYDROcodone/acetaminophen 10/325mg tab PO PRN (00:35)
[2021-09-19] MEDS ORDERED: diphenhydrAMINE 50 mg/ml inj IV PRN (00:35)
[2021-09-19] MEDS: niCARDipine-NS 40mg/200ml IVPB 200 ML IV SCH ×3 (00:50→07:08)
[2021-09-19] MEDS ORDERED: thiamine 100mg/ml 2ml inj. IV ONE (00:50)
[2021-09-19] MEDS ORDERED: cloNIDine 0.1 MG/24 HOUR patch (7 day patch) TD SCH (01:00)
[2021-09-19] MEDS ORDERED: dextrose 50%-water 50ml dispensing syringe IV PRN (01:00)
[2021-09-19] MEDS ORDERED: haloperidol 5mg tablet PO PRN (01:00)
[2021-09-19] MEDS ORDERED: LORazepam 2 mg/ml vial IV PRN (01:00)
[2021-09-19] MEDS ORDERED: cloNIDine 0.1 mg tablet PO PRN (01:00)
[2021-09-19] MEDS ORDERED: haloperidol lactate 5mg/ml inj IM PRN (01:00)
[2021-09-19] MEDS ORDERED: loperamide 2mg capsule PO PRN (01:00)
[2021-09-19] MEDS ORDERED: cyclobenzaprine 10mg tablet PO PRN (01:00)
[2021-09-19 01:37] LABS: CREATINE KINASE 77 U/L (39-308); LIPASE 467 U/L (73-393); MAGNESIUM 1.6 MG/DL (1.5-2.4); PHOSPHORUS 3.9 MG/DL (2.3-4.5)
[2021-09-19 01:38] LABS: ETHANOL < 0.010 GM/DL (0.0-0.010)
[2021-09-19 01:39] LABS: CLARITY,URINE CLEAR (Clear); COLOR,URINE STRAW (Yellow); GLUCOSE, URINE NEGATIVE (Neg); KETONES,URINE NEGATIVE (Neg); LEUKOCYTE ESTERASE ,URINE NEGATIVE (Neg); NITRITES, URINE NEGATIVE (Neg); OCCULT BLOOD,URINE NEGATIVE (Neg); PROTEIN,URINE NEGATIVE (Neg); UA COLLECTION TYPE URINAL; UROBILINOGEN,URINE 0.2 E.U/dL (0.2-1.0)
[2021-09-19] MEDS ORDERED: ATOR20TA66 PO (01:40)
[2021-09-19 01:49] LABS: URINE AMPHETAMINE SCREEN NEGATIVE (Neg); URINE BARBITUATE SCREEN NEGATIVE (Neg); URINE BENZODIAZEPINES SCREEN NEGATIVE (Neg); URINE CANNABINOID SCREEN NEGATIVE (Neg); URINE COCAINE SCREEN NEGATIVE (Neg); URINE METHADONE SCREEN NEGATIVE (Neg); URINE OPIATE SCREEN NEGATIVE (Neg); URINE PHENCYCLIDINE SCREEN NEGATIVE (Neg)
[2021-09-19] MEDS: LORazepam 2 mg/ml vial IV SCH ×2 (02:00→20:00)
[2021-09-19] MEDS ORDERED: folic acid inj. 2 MG, thiamine inj. 100 MG, MVI, adult No.4 with vit. K 10 ML in dextro... IV SCH ×4 (08:00)
--- NOTE | 2021-09-19 08:42 | NUR ---
pt sleeping quietly
[2021-09-19] MEDS: folic acid 1mg tablet PO SCH (09:38)
[2021-09-19] MEDS: carVEDilol 12.5mg tablet PO SCH ×2 (09:39→19:56)
[2021-09-19] MEDS: clopidogrel 75mg tablet PO SCH (09:39)
[2021-09-19] MEDS: atorvastatin 20mg tablet PO SCH (09:39)
[2021-09-19] MEDS: losartan 50mg tablet PO SCH (09:39)
[2021-09-19] MEDS: thiamine 100mg tablet PO SCH (09:39)
[2021-09-19] MEDS: aspirin 81mg, enteric-coated 1 TAB TABLET.DR PO SCH (09:40)
[2021-09-19] MEDS: multivitamins, therapeutics tablet PO SCH (09:40)
[2021-09-19] MEDS: docusate sod 100mg capsule PO SCH ×2 (09:40→19:56)
--- NOTE | 2021-09-19 13:43 | NUR ---
pt to mri via wheelchair in stable condition
--- NOTE | 2021-09-19 17:00 | NUR ---
PAGED DR. FOWLER. PT IS UNDER THE IMPRESSION THAT HE WAS GOING HOME AFTER THE MRI.
--- NOTE | 2021-09-19 17:18 | NUR ---
DR. FOWLER ON THE PHONE WITH PATIENT EXPLAINING RESULTS OF MRI AND PT BEING ADMITTED FOR PT EVALUATION.
[2021-09-19 17:45] VITALS: BP 164/100
[2021-09-19 18:00] VITALS: BP 155/94
--- NOTE | 2021-09-19 18:49 | NUR ---
Problems reprioritized. Patient report given, questions answered & plan of care reviewed with Nicole RN.
[2021-09-19] MEDS ORDERED: insulin glargine (Lantus) pen - multi-dose SQ SCH (21:00)
[2021-09-19] MEDS ORDERED: temazepam 15mg capsule PO PRN (21:00)
[2021-09-19 22:00] VITALS: BP 150/90
[2021-09-20 02:00] VITALS: BP 150/99
[2021-09-20] MEDS: LORazepam 2 mg/ml vial IV SCH (02:00)
[2021-09-20 06:00] VITALS: BP 159/91
[2021-09-20 06:21] LABS: BASOPHILS % (AUTO) 0.6 % (0-1); EOSINOPHILS # (AUTO) 0.2 X10'3 (0-0.9); EOSINOPHILS % (AUTO) 4.6 % (0-6); HEMATOCRIT 37.3 % (42.0-52.0); HEMOGLOBIN 12.8 g/dl (14.0-17.9); LYMPHOCYTES # (AUTO) 1.3 X10'3 (1.1-4.8); LYMPHOCYTES % (AUTO) 30.5 % (21-51); MEAN CORPUSCULAR HEMOGLOBIN 36.7 PG (27.0-31.0); MEAN CORPUSCULAR HGB CONC 34.2 g/dL (33.0-36.5); MEAN CORPUSCULAR VOLUME 107.4 FL (78-98); MEAN PLATELET VOLUME 9.1 FL (7.4-10.4); MONOCYTES # (AUTO) 0.5 X10'3 (0-0.9); MONOCYTES % (AUTO) 12.2 % (2-12); NEUTROPHILS # (AUTO) 2.1 X10'3 (1.8-7.7); NEUTROPHILS % (AUTO) 52.1 % (42-75); PLATELET COUNT 115 X10'3 (140-440); RED BLOOD COUNT 3.47 X10'6 (4.70-6.10); RED CELL DISTRIBUTION WIDTH 13.9 % (11.5-14.5); WHITE BLOOD COUNT 4.1 X10'3 (4.5-11.0)
[2021-09-20 06:43] LABS: ALANINE AMINOTRANSFERASE 40 U/L (12-78); ALBUMIN 3.2 G/DL (3.4-5.0); ALBUMIN/GLOBULIN RATIO 0.8 (1.1-1.5); ALKALINE PHOSPHATASE 45 IU/L (46-116); AMYLASE 149 U/L (25-115); ANION GAP 10 (8-16); ASPARTATE AMINO TRANSFERASE 39 U/L (10-37); BILIRUBIN,TOTAL 0.7 MG/DL (0.1-1.0); BLOOD UREA NITROGEN 11 MG/DL (7-18); BUN/CREATININE RATIO 11.3 (5.4-32.0); CALCIUM 8.6 MG/DL (8.5-10.1); CHLORIDE 103 MMOL/L (99-107); CHOL/HDL RATIO 3.8 (0.00-4.99); CHOLESTEROL 168 MG/DL (0-200); CREATININE 0.97 MG/DL (0.60-1.10); GLUCOSE 132 MG/DL (70-104); HDL CHOLESTEROL 44 MG/DL (35-60); LDL CHOLESTEROL 96 MG/DL (50-100); POTASSIUM 3.5 MMOL/L (3.5-5.1); SODIUM 137 MMOL/L (135-145); TOTAL PROTEIN 7.4 G/DL (6.4-8.2); TRIGLYCERIDES 152 MG/DL (20-135); eGFR 78 ML/MIN
[2021-09-20] MEDS ORDERED: amLODIPine 2.5mg tablet PO SCH (08:00)
--- NOTE | 2021-09-20 08:09 | NUR ---
PAGER ID: [phone] MESSAGE: [phone] BRANDON BYERS- CAN WE CHANGE HIS ATIVAN TO PO IF HE IS GOING TO BE ON SCHEDULED? BEBO LÓPEZ [phone]
[2021-09-20] MEDS: docusate sod 100mg capsule PO SCH (08:12)
[2021-09-20] MEDS: clopidogrel 75mg tablet PO SCH (08:12)
[2021-09-20] MEDS: thiamine 100mg tablet PO SCH (08:12)
[2021-09-20] MEDS: folic acid 1mg tablet PO SCH (08:13)
[2021-09-20] MEDS: aspirin 81mg, enteric-coated 1 TAB TABLET.DR PO SCH (08:13)
[2021-09-20] MEDS: losartan 50mg tablet PO SCH (08:13)
[2021-09-20] MEDS: multivitamins, therapeutics tablet PO SCH (08:14)
[2021-09-20] MEDS: atorvastatin 20mg tablet PO SCH (08:14)
[2021-09-20] MEDS: carVEDilol 12.5mg tablet PO SCH (08:14)
[2021-09-20] MEDS ORDERED: FLU VACC QS2021-22(6MOS UP)/PF 60 MCG/0.5 ML SYRINGE IM ONE (09:00)
--- NOTE | 2021-09-20 09:20 | NUR ---
md morales rounded on pt and discussed dx and tx plan , reviewed meds with santiago culver ativan scheduled dose, sl, remove nitro, add amplodipine 2.5mg. 140/90 current bp md aware
--- NOTE | 2021-09-20 09:36 | NUR ---
RECEIVED ORDERS REGARDING CAROTID US - PAGE TO VASCULAR SENT
--- NOTE | 2021-09-20 09:38 | NUR ---
PT paged per md morales request to eval and tx for possible discharge today
[2021-09-20 11:00] VITALS: BP 136/63
[2021-09-20] MEDS ORDERED: AMLO2.5T5 PO (14:08)
[2021-09-20] MEDS ORDERED: LOSA50TA64 PO (14:08)
[2021-09-20] MEDS ORDERED: MULT-25 PO (14:08)
[2021-09-20 15:00] VITALS: BP 142/93
--- NOTE | 2021-09-20 16:00 | NUR ---
Discharge to home via w/c to his " [employer]" car. reviewed disch papers, new meds and instructions to follow up with his primary within 2 wks. iv removed, cath intact, walker in room delivered, vss, amb fair- better with walker and i. speech clear, face sym, perrla.
[2021-09-21] MEDS ORDERED: LORazepam 2 mg/ml vial IV PRN (01:00)
[2021-09-21] MEDS ORDERED: LORazepam 1 MG tablet PO PRN (01:00)
[2021-09-23] MEDS ORDERED: LORazepam 1 MG tablet PO PRN (01:00)
[2021-09-23] MEDS ORDERED: LORazepam 2 mg/ml vial IV PRN (01:00)
[2021-09-26 16:03] LABS: ALDOSTERONE 1.3 ng/dL (0.0-30.0)
[2021-09-28 17:15] LABS: RENIN, PLASMA 0.276 ng/mL/hr (0.167-5.380)
== END 2021-09-20 16:05 | disposition home or self-care (01) | DRG 45 ==
LOC: ER 20:17 → ED HOLD 09-19 00:37 → PCU 3S 09-19 17:45
PROVIDERS: ADMIT Family Medicine; ATTEND Family Medicine
DX: I63.9 Cerebral infarction, unspecified (principal); I50.23 Acute on chronic systolic (congestive) heart failure; I21.A1 Myocardial infarction type 2; E87.1 Hypo-osmolality and hyponatremia; G81.94 Hemiplegia, unspecified affecting left nondominant side; I16.1 Hypertensive emergency; E11.65 Type 2 diabetes mellitus with hyperglycemia; K70.9 Alcoholic liver disease, unspecified; K76.0 Fatty (change of) liver, not elsewhere classified; E78.00 Pure hypercholesterolemia, unspecified; I25.10 Atherosclerotic heart disease of native coronary artery without angina pectoris; F10.20 Alcohol dependence, uncomplicated; E78.5 Hyperlipidemia, unspecified; F41.9 Anxiety disorder, unspecified; K21.9 Gastro-esophageal reflux disease without esophagitis; R27.0 Ataxia, unspecified; I11.0 Hypertensive heart disease with heart failure; Z71.41 Alcohol abuse counseling and surveillance of alcoholic; Z88.8 Allergy status to other drugs, medicaments and biological substances; Z79.82 Long term (current) use of aspirin; Z79.899 Other long term (current) drug therapy; Z79.84 Long term (current) use of oral hypoglycemic drugs; Z79.02 Long term (current) use of antithrombotics/antiplatelets
CPT/HCPCS: 36415; 70450; 70551; 71045; 74176; 80053; 80061; 80305; 80320; 81003; 82088; 82150; 82550; 82948; 83036; 83690; 83735; 83880; 84100; 84244; 84443; 84484; 85025; 85610; 85730; 87081; 93005; 93306; 93880; 96374; 97116; 97162; 97530; 99291; G0378; J1815; J2060; J3411; J3490; J7030

== ENCOUNTER 2023-12-15 19:59 | Emergency (ER) | payer MEDICAID ==
[~2023-12-15] VITALS: Ht 165.1 cm; Wt 59.1 kg
[~2023-12-15 19:59] MED LIST changes: +AMLO2.5T5 PO; -FAMO-128 PO; -GLIM1TAB PO; -HYDR200T84 PO; +LOSA50TA64 PO; +MULT-25 PO
[2023-12-15 20:35] LABS: BASOPHILS % (AUTO) 0.5 % (0-1); EOSINOPHILS # (AUTO) 0.1 X10'3 (0-0.9); EOSINOPHILS % (AUTO) 0.9 % (0-6); HEMATOCRIT 42.2 % (42.0-52.0); HEMOGLOBIN 14.4 g/dl (14.0-17.9); LYMPHOCYTES # (AUTO) 1.5 X10'3 (1.1-4.8); LYMPHOCYTES % (AUTO) 18.8 % (21-51); MEAN CORPUSCULAR HGB CONC 34.1 g/dL (33.0-36.5); MEAN CORPUSCULAR VOLUME 102.8 FL (78-98); MEAN PLATELET VOLUME 8.5 FL (7.4-10.4); MONOCYTES # (AUTO) 0.6 X10'3 (0-0.9); MONOCYTES % (AUTO) 7.2 % (2-12); NEUTROPHILS # (AUTO) 5.8 X10'3 (1.8-7.7); NEUTROPHILS % (AUTO) 72.6 % (42-75); PLATELET COUNT 146 X10'3 (140-440); RED BLOOD COUNT 4.11 X10'6 (4.70-6.10); RED CELL DISTRIBUTION WIDTH 14.1 % (11.5-14.5)
[2023-12-15 20:56] LABS: ALANINE AMINOTRANSFERASE 43 U/L (12-78); ALBUMIN 3.5 G/DL (3.4-5.0); ALBUMIN/GLOBULIN RATIO 0.7 (1.1-1.5); ALKALINE PHOSPHATASE 84 IU/L (46-116); ANION GAP 15 (8-16); ASPARTATE AMINO TRANSFERASE 43 U/L (10-37); BILIRUBIN,TOTAL 0.6 MG/DL (0.1-1.0); BLOOD UREA NITROGEN 8 MG/DL (7-18); BUN/CREATININE RATIO 7.1 (10.0-20.0); CALCIUM 9.1 MG/DL (8.5-10.1); CHLORIDE 98 MMOL/L (99-107); CREATININE 1.13 MG/DL (0.60-1.10); GLUCOSE 217 MG/DL (70-104); PRO BRAIN NATRIURETIC PEPTIDE 328 PG/ML (0-125); SODIUM 136 MMOL/L (135-145); TOTAL CARBON DIOXIDE 23.3 MMOL/L (24-32); TOTAL PROTEIN 8.7 G/DL (6.4-8.2); eCRCL 55 ML/MIN; eGFR 65 ML/MIN
[2023-12-15 21:04] LABS: POTASSIUM 2.9 MMOL/L (3.5-5.1)
[2023-12-15] MEDS ORDERED: potassium Cl 20 mEq SR tablet PO STA (23:37)
[2023-12-15] MEDS ORDERED: ondansetron 4mg rapidly disintigrating tab PO ONE (23:40)
[2023-12-15] MEDS ORDERED: ketorolac trometh inj. 60 MG/2 ML VIAL IM ONE ×2 (23:40→23:45)
[2023-12-16 00:16] VITALS: BP 195/104; PULSE 81; RESP 16; TEMP 97.8; O2SAT 98
== END 2023-12-16 00:18 | disposition home or self-care (01) ==
LOC: ER 20:00
DX: R07.81 Pleurodynia (principal); E87.6 Hypokalemia; E78.00 Pure hypercholesterolemia, unspecified; I10 Essential (primary) hypertension; E11.9 Type 2 diabetes mellitus without complications; F17.200 Nicotine dependence, unspecified, uncomplicated; Z88.8 Allergy status to other drugs, medicaments and biological substances; Z79.899 Other long term (current) drug therapy
CPT/HCPCS: 36415; 71045; 80053; 83880; 84484; 85025; 93005; 96372; 99285; J1885; A6449